=== PATIENT | female | born 1970 | race Two or more races ===

== ENCOUNTER → 2024-12-30 | Emergency (ER) | payer OTHER ==
[~2024-12-30] VITALS: Ht 175.3 cm; Wt 68.0 kg
[~2024-12-30] MED LIST: CLEOCIN HCL300 MG PO; CLINDAMYCIN HC300 MG PO; CLINDAMYCIN PHOSPHATE 150 MG/ML (300mg) ONE; CLINDAMYCIN PHOSPHATE 600 MG in DEXTROSE 5 % IN WATER 50 ML IV ONE; COZAAR50 MG PO; DEXAMETHASONE SODIUM PHOSPHATE 4 MG/ML VIAL IV ONE; DEXAMETHASONE SODIUM PHOSPHATE 4 MG/ML VIAL ONE; ENALAPRILAT DIHYDRATE 1.25 MG/ML VIAL IV ONE; ENALAPRILAT DIHYDRATE 2.5 MG/2 ML VIAL IV ONE; ENDOMETRIN100 MG VG; FAMOTIDINE/PF 20 MG/2 ML VIAL ONE; FAMOtidine 10 MG/ML (4ML VIAL) IV PUSH ONE; KETOROLAC TROMETHAMINE 15 MG VIAL IU ONE; KETOROLAC TROMETHAMINE 30 MG VIAL ONE; MEDROLPACK PO; MINIVELLE1 EACH TD; OSELTAMIVIR PHOSPHATE 75 MG CAPSULE PO ONE; OXYBUTYNIN CHLO15 MG PO
[2024-12-30 21:47] LABS: BASO % 0.5 % (0.1-1.2); EOS # 0.03 (0.04-0.54); EOS % 0.5 % (0.7-7.0); LYMPH # 2.07 (1.18-3.74); LYMPH % 32.9 % (19.3-53.1); MEAN PLATELET VOLUME 10.00 fl (9.4-12.4); MONO # 0.50 (0.24-0.82); MONO % 7.9 % (4.7-12.5); NEUT # 3.66 (1.56-6.13); NEUT % 58.2 % (34.0-71.1); RED CELL DISTRIBUTION WIDTH 14.1 % (11.6-14.4)
[2024-12-30 21:50] LABS: ERYTHROCYTE SEDIMENTATION RATE 16 mm/hr (0-30)
[2024-12-30 22:18] LABS: ALT/SGPT 27.0 U/L (12-78); AST/SGOT 20.0 U/L (15-37); BILIRUBIN TOTAL 0.87 mg/dL (0.3-1.2); BUN CREA RATIO 26.0 (7.0-25.0); CREATININE SERUM 0.7 mg/dL (0.55-1.02); GFR 86.56; GLOBULINA 3.9 G/DL (2.4-3.5); GLUCOSE FASTING 120.0 mg/dL (65-100); OSMOLALITY SERUM 282.0 MOSM/KG (275-295)
== END | disposition home or self-care (01) ==
LOC: ER 17:05
PROVIDERS: General Practice
DX: J34.1 Cyst and mucocele of nose and nasal sinus (principal); I10 Essential (primary) hypertension; Z88.0 Allergy status to penicillin
CPT/HCPCS: 36415; 70487; Q9965